=== PATIENT | male | born 1985 | race Caucasian/White ===

== ENCOUNTER 2018-10-25 18:00 | Outpatient (CLI) | payer BC | END 2018-10-25 18:01 | disposition home or self-care (01) | LOC: SLEEPLAB 18:00 | PROVIDERS: ATTEND Internal Medicine | DX: G47.33 Obstructive sleep apnea (adult) (pediatric) (principal); R51 Headache; R53.83 Other fatigue; K21.9 Gastro-esophageal reflux disease without esophagitis; R06.83 Snoring; G47.00 Insomnia, unspecified; R35.1 Nocturia | CPT/HCPCS: 95806 ==

== ENCOUNTER 2019-02-02 19:30 | Outpatient (CLI) | payer BC | END 2019-02-02 19:31 | disposition home or self-care (01) | LOC: SLEEPLAB 19:30 | PROVIDERS: ATTEND Internal Medicine | DX: G47.33 Obstructive sleep apnea (adult) (pediatric) (principal); R53.83 Other fatigue; R09.89 Other specified symptoms and signs involving the circulatory and respiratory systems; R51 Headache; K21.9 Gastro-esophageal reflux disease without esophagitis; R06.83 Snoring; G47.00 Insomnia, unspecified; R35.1 Nocturia; G47.10 Hypersomnia, unspecified | CPT/HCPCS: 95810 ==

== ENCOUNTER 2019-03-22 15:44 | Outpatient (CLI) | payer BC ==
--- NOTE | 2019-03-22 16:32 | MRI ---
MRI lumbar spine noncontrast: HISTORY: Lumbar radiculopathy, left-sided: Left leg pain. Foot numbness. COMPARISON: None FINDINGS: Straightening of normal lumbar lordosis is likely positional. No significant STIR hyperintensity to s uggest ligamentous injury. No evidence of vertebral body edema. No evidence of fracture. Appropriate T1 marrow signal intensity Appropriate signal intensity of the paraspinal muscles Appropriate signal intensity visualized solid organs Conus medullaris terminates at the inferior aspect of L1 T12-L1:No significant central canal stenosis or significant neural foraminal narrowing L1-L2:No significant central canal stenosis or significant neural foraminal narrowing L2-L3:No significant central canal stenosis or significant neural foraminal narrowing. L3-L4:No significant central canal stenosis or significant foraminal narrowing. Minimal ligament flav um thickening and facet hypertrophy. L4-L5:No central canal stenosis or significant neural foraminal narrowing. Mild ligament flavum thick ening and facet hypertrophy. Small amount of fluid in both facet joints. L5-S1:Mild loss of disc space height. There is a central disc protrusion with disc material entering the left and right subarticular zone. There is a left subarticular sequestered disc fragment, measuring 1.4 cm craniocaudal x 1 cm mediolateral x 0.8 cm anterior posterior. There is contact upon the traversing left S1 nerve root secondary to the sequestered disc fragment. There is also mass effect with mild displacement of bilateral traversing S1 nerve root secondary to disc material in bot h subarticular zones. No significant stenosis upon the sac. Mild right foraminal narrowing due to disc material. Moderate left foraminal narrowing due to disc material. IMPRESSION: 1. Degenerative changes of the lumbar spine and L5-S1. Sequestered disc fragment the left subarticula r zone with mass effect upon the traversing left S1 nerve root. 2. Disc protrusion with disc material involving both subarticular zones. There are some mass effect u shanae bilateral traversing S1 nerve roots. 3. Moderate right foraminal narrowing predominantly due to disc material Transcribed Date/Time: 03/22/2019 4:40 PM
== END 2019-03-22 15:45 | disposition home or self-care (01) ==
LOC: TBSIIMAG 15:44
PROVIDERS: ATTEND Family Medicine
DX: M47.26 Other spondylosis with radiculopathy, lumbar region (principal); M47.27 Other spondylosis with radiculopathy, lumbosacral region; M51.16 Intervertebral disc disorders with radiculopathy, lumbar region; M48.061 Spinal stenosis, lumbar region without neurogenic claudication
CPT/HCPCS: 72148

== ENCOUNTER 2019-04-11 09:38 | Day surgery (SDC) | payer BC ==
[2019-04-08 14:11] VITALS: BMI 28.7
[2019-04-11] MEDS ORDERED: Midazolam HCl 2 mg/2 ml Vial ONE (10:11)
[2019-04-11] MEDS ORDERED: Fentanyl 100 MCG/2 ML VIAL ONE ×5 (10:49→16:14)
[2019-04-11] MEDS ORDERED: Promethazine HCl 25 MG/ML VIAL ONE (13:10)
[2019-04-11] MEDS ORDERED: Bupivacaine HCl 0.5%/Epinephrine 1:200,000/PF 30 ml Vial ONE (13:55)
[2019-04-11] MEDS ORDERED: SUGAMMADEX SODIUM 200 MG/2 ML VIAL ONE (14:46)
[2019-04-11] MEDS ORDERED: Rocuronium Bromide 10 MG/ML (10ML VIAL) ONE (14:54)
[2019-04-11] MEDS ORDERED: PROPOFOL 200 MG/20 ML VIAL ONE (14:54)
[2019-04-11] MEDS ORDERED: Lidocaine 1% PF 5 ML VIAL ONE (14:54)
[2019-04-11] MEDS ORDERED: Dexamethasone 20 MG/5 ML VIAL ONE (14:54)
[2019-04-11] MEDS ORDERED: Ondansetron PF 4 MG/2 ML Vial ONE (14:54)
[2019-04-11] MEDS ORDERED: Glycopyrrolate 0.2 MG/ML 5 ML SYRINGE ONE (14:54)
[2019-04-11] MEDS ORDERED: Tamsulosin HCl 0.4 MG CAP ONE (15:46)
[2019-04-11] MEDS ORDERED: Acetaminophen/Codeine 30-300mg Tablet ONE (17:34)
[2019-04-11] MEDS ORDERED: Cyclobenzaprine 10 MG TAB ONE (17:40)
--- NOTE | 2019-04-11 21:06 | OP ---
DATE OF PROCEDURE: 04/11/2019 ANIMAL STICKER: Luan Blackwood PA-C. INDICATION: Pain. DIAGNOSIS: Lumbar radiculopathy. PROCEDURE PERFORMED: Left L5 diskectomy. ANESTHESIA: General. DESCRIPTION OF PROCEDURE: The patient was brought into the operating room and placed under general anesthesia. He was flipped from the supine to prone position on the operating room table. A linear incision was planned over the L5 segment. After prepping and draping and after an appropriate operative pause, the incision was created. The soft tissues were swept left of midline. A self-retaining retractor was placed in the wound for optimal exposure. After confirming the appropriate level, 2, 3, and 4 mm Kerrisons were used to perform a laminectomy along the inferior aspect of L5 and superior aspect of S1. The laminectomy of S1 was extended more inferiorly than normal secondary to an inferiorly migrated disk fragment. The axilla of the S1 nerve root was identified and within the axilla, there was a large inferiorly migrated disk fragment that was removed. After the diskectomy, the wound was irrigated. Hemostasis was maintained throughout. The wound was then closed in anatomic layers and a pressure dressing was applied. There were no known procedural complications. Job ID: [id number]
== END 2019-04-11 18:10 | disposition home or self-care (01) ==
LOC: SDC 09:38
PROVIDERS: ATTEND Neurological Surgery
PROC: 0ST20ZZ Resection of Lumbar Vertebral Disc, Open Approach (ICD-10-PCS; principal; 2019-04-11)
DX: M51.16 Intervertebral disc disorders with radiculopathy, lumbar region (principal)
CPT/HCPCS: 76000; J0670; J0690; J1100; J2001; J2250; J2405; J2550; J2704; J3010